=== PATIENT | female | born 1985 | race Caucasian/White ===

== ENCOUNTER 2017-03-31 14:15 | Emergency (ER) | payer BC ==
--- NOTE | 2017-03-31 14:30 | ER Document Report ---
ED Medical Screen (RME) - General Chief Complaint: Vag Bleeding, +preg <12wks Stated Complaint: VAGINAL BLEEDING Time Seen by Provider: 03/31/17 14:26 Notes: Patient presents with bleeding and abdominal cramping 1 day. She states she is currently 11 weeks . Not lightheaded or dizzy. She has had a previous miscarriage. Patient denies any chronic medical problems. TRAVEL OUTSIDE OF THE [place] IN LAST 30 DAYS: No - Related Data Allergies/Adverse Reactions: No Known Allergies Allergy (Unverified 03/31/17 14:23) Home Medications: Current Home Medications No Home Medications 03/31/17 [History] Vit #76/Iron,Carb/FA [Prenatabs Rx Tablet] 1 each PO DAILY 03/31/17 [ History] Past Medical History Renal/ Medical History: Denies: Hx Peritoneal Dialysis Physical Exam - Vital signs Vitals: Temp Pulse Resp BP Pulse Ox 97.8 F 73 16 117/64 100 03/31/17 14:27 03/31/17 14:27 03/31/17 14:27 03/31/17 14:27 03/31/17 14:27 Course - Vital Signs Vital signs: Temp Pulse Resp BP Pulse Ox 97.8 F 73 16 117/64 100 03/31/17 14:27 03/31/17 14:27 03/31/17 14:27 03/31/17 14:27 03/31/17 14:27
[2017-03-31 15:06] LABS: ABSOLUTE EOSINOPHILS # (AUTO) 0.1 10^3/uL (0.0-0.6); ABSOLUTE LYMPHOCYTES (AUTO) 1.9 10^3/uL (0.5-4.7); ABSOLUTE MONOCYTES (AUTO) 0.4 10^3/uL (0.1-1.4); ABSOLUTE NEUT (AUTO) 5.3 10^3/uL (1.7-8.2); BASOPHILS % (AUTO) 0.5 % (0-2); EOSINOPHILS % (AUTO) 1.7 % (0-6); HEMATOCRIT 40.6 % (36.0-47.0); HEMOGLOBIN 13.3 g/dL (12.0-15.5); HGB HCT DIFFERENCE -0.7; LYMPHOCYTES % (AUTO) 24.1 % (13-45); MEAN CORPUSCULAR HGB CONC 32.8 g/dL (32.0-36.0); MEAN CORPUSCULAR VOLUME 88 fl (80-97); MONOCYTES % (AUTO) 4.9 % (3-13); RED CELL DISTRIBUTION WIDTH 13.2 % (11.5-14.0); SEGMENTED NEUTROPHILS % (AUTO) 68.8 % (42-78); WHITE BLOOD COUNT 7.8 10^3/uL (4.0-10.5)
[2017-03-31 15:27] LABS: ANION GAP 10 (5-19); BLOOD UREA NITROGEN 13 mg/dL (7-20); CALCIUM 9.3 mg/dL (8.4-10.2); CARBON DIOXIDE 26 mmol/L (22-30); CHLORIDE 107 mmol/L (98-107); CREATININE RESULT 0.59 mg/dL (0.52-1.25); GLUCOSE 84 mg/dL (75-110); POTASSIUM 4.1 mmol/L (3.6-5.0); SODIUM 142.5 mmol/L (137-145)
--- NOTE | 2017-03-31 17:03 | ER Document Report ---
ED GI/ - General Chief Complaint: Vag Bleeding, +preg <12wks Stated Complaint: VAGINAL BLEEDING Time Seen by Provider: 03/31/17 14:26 Notes: Patient is approximately 11 weeks and started having spotting on Tuesday. During this past week she has had continued spotting and began passing some clots on Tuesday and Tuesday. She is also having some cramping like with her menstrual cycle. Patient has not had any ultrasound imaging of this . G3, P1, A1. TRAVEL OUTSIDE OF THE [place] IN LAST 30 DAYS: No - Related Data Allergies/Adverse Reactions: No Known Allergies Allergy (Unverified 03/31/17 14:23) Home Medications: Current Home Medications Vit #76/Iron,Carb/FA [Prenatabs Rx Tablet] 1 each PO DAILY 03/31/17 [ History] Past Medical History - Social History Smoking Status: Never Smoker Chew tobacco use (# tins/day): No Frequency of alcohol use: None Drug Abuse: None Family History: Reviewed & Not Pertinent Patient has suicidal ideation: No Patient has homicidal ideation: No Past Surgical History: Reports: Hx Kidney (Renal Surgery) - lithotripsy - Immunizations Hx Diphtheria, Pertussis, Tetanus Vaccination: No Review of Systems - Review of Systems Notes: REVIEW OF SYSTEMS: CONSTITUTIONAL : Denies fever. EENT: Denies eye, ear, nose or mouth or throat pain or other symptoms. CARDIOVASCULAR: Denies chest pain. RESPIRATORY: Denies cough, chest congestion, or shortness of breath. GASTROINTESTINAL: Has lower abdominal cramping like a menstrual cycle. However , denies nausea, vomiting, or diarrhea. GENITOURINARY: Denies difficulty or painful urinating, urinary frequency, blood in urine. See HPI MUSCULOSKELETAL: Denies back or neck pain. Denies joint pain or swelling. SKIN: Denies rash or skin lesions. ALL OTHER SYSTEMS REVIEWED AND NEGATIVE. Physical Exam - Vital signs Vitals: Temp Pulse Resp BP Pulse Ox 97.8 F 73 16 117/64 100 03/31/17 14:27 03/31/17 14:27 03/31/17 14:27 03/31/17 14:27 03/31/17 14:27 Interpretation: Normal - Notes Notes: PHYSICAL EXAMINATION: GENERAL: Well-appearing, in no acute distress. Vital signs are all normal. HEAD: Atraumatic, normocephalic. LUNGS: Breath sounds clear and equal bilaterally. HEART: Regular rate and rhythm without murmurs. ABDOMEN: Soft, nontender. No guarding or rebound. BACK: No tenderness throughout entire back. EXTREMITIES: Normal range of motion without pain. NEUROLOGICAL: Normal speech, normal gait. Normal sensory, motor, and reflex exams. Awake, alert, and oriented x3. Cranial nerves normal. SKIN: Warm, dry, no rashes. - Genitourinary External exam: Normal Speculum exam: Cervix open - At least 1 cm, Products of conception - Most likely tissue found in vagina., Other Vaginal bleeding: Mild Bimanuel exam: Other. No: Cervical motion tender, Adnexal mass, Adnexal tenderness, Uterus enlarged Course - Re-evaluation Re-evalutation: 03/31/17 20:53 After the pelvic exam, and the removal of the tissue from the vagina and from the cervical loss, patient says she was having no cramping or pain at all. Explain what apparently has happened, i.e. patient has had a miscarriage. No evidence of an ectopic . Copies of all labs and imaging studies were provided to the patient. Patient says she has called her [employer] and has an appointment to be seen by them Tuesday and . - Vital Signs Vital signs: Temp Pulse Resp BP Pulse Ox 97.8 F 65 18 141/92 H 97 03/31/17 14:27 03/31/17 18:03 03/31/17 18:03 03/31/17 18:03 03/31/17 18:03 - Laboratory Result Diagrams: 03/31/17 14:30 03/31/17 14:30 Laboratory results interpreted by me: 03/31/17 14:30 Beta HCG, Quant 39939.00 H Discharge - Discharge Clinical Impression: Miscarriage Condition: Stable Disposition: HOME, SELF-CARE Additional Instructions: Miscarriage You have had a miscarriage (medically called a "spontaneous "). The miscarriage occurred because the fetus did not develop normally. There is nothing you did to cause it, and nothing you could have done to prevent it. About one in four ends in miscarriage. You should rest in bed for two or three days. As there is some risk of infection of the uterus, you should not have intercourse for one week (or until okayed by your physician). You might not have a period for six to eight weeks. You should not become again for at least three months -- the uterus requires time to get back to normal. Call the doctor or return for re-examination if there is heavy or persistent vaginal bleeding, fever, foul discharge, continued cramping pains, or abdominal pain. USE OF ACETAMINOPHEN (Tylenol): Acetaminophen may be taken for pain relief or fever control. It's much safer than aspirin, offering a wider range of "safe" dosages. It is safe during . Some brand names are Tylenol, Panadol, Datril, Anacin 3, Tempra, and Liquiprin. Acetaminophen can be repeated every four hours. The following are maximum recommended dosages: WEIGHT Dose Drops Elixir Chewable( 80mg) (LBS.) drprs=droppers tsp=teaspoon >89 pounds or adults 650 mg to 900 mg Acetaminophen can be repeated every four hours. Maximum dose not to exceed 4000 mg a day. These maximum recommended dosages are slightly higher than the dosages written on the product container, but these dosages are very safe and below the toxic dosage for acetaminophen. Ibuprofen Ibuprofen is an excellent, safe drug for pain control. In addition, it has potent antiinflammatory effects which are beneficial, especially in the treatment of injuries, arthritis, or tendonitis. It's best to take ibuprofen with food. Persons with ulcer disease or allergy to aspirin should notify their physician of this before taking ibuprofen. Take the medication exactly as prescribed. Don't take additional doses unless instructed to do so by your doctor. If you develop wheezing, shortness of breath, hives, faintness, stomach pain, vomiting, or dark black stools, return for re-evaluation at once. Doxycycline Doxycycline (Vibramycin, Doryx) is an antibiotic of the tetracycline family. This type of drug is useful for infections of the respiratory tract and genital tract, and is sometimes used for intestinal infections. Unlike most tetracyclines, doxycycline can be taken with food. It is longer acting, and (usually) less prone to side effects than regular tetracycline. Tetracycline antibiotics can stain immature teeth and SHOULD NOT BE TAKEN BY CHILDREN, NURSING MOTHERS, OR WOMEN. Tetracyclines can make you more prone to sunburn. Abdominal cramping, nausea, and diarrhea are occasional side effects. Women may experience vaginal yeast infections. Call the doctor at once if you develop hives, itching, shortness of breath , or lightheadedness. Return for reevaluation if you run a high fever, have severe abdominal pains, or extremely heavy bleeding with clots that will not stop Keep your appointment that you have scheduled with your doctor in [place] Tuesday. Pelvic rest for 2 weeks. Avoid swimming in any water, such as pool water, river or ocean water, etc. FOLLOW-UP CARE: If you have been referred to a physician for follow-up care, call the physician s office for an appointment as you were instructed or within the next two days. If you experience worsening or a significant change in your symptoms, notify the physician immediately or return to the Emergency Department at any time for re-evaluation. Prescriptions: Doxycycline Hyclate 100 mg PO BID #14 capsule
--- NOTE | 2017-03-31 17:09 | RADIOLOGY REPORT (SQ) ---
EXAM DESCRIPTION: U/S OB TRANSVAG W/DOPPLER COMPLETED DATE/TIME: 03/31/2017 4:59 pm REASON FOR STUDY: bleeding/pain COMPARISON: None. TECHNIQUE: Transvaginal static and realtime grayscale images acquired of the pelvis. Additional lay cted spectral and color Doppler images recorded. All images stored on PACs. [id number] LIMITATIONS: None. FINDINGS: UTERUS: No masses. No anomalies. GESTATIONAL SAC: No IUP is identified. There is a questionable gestational sac within the vaginal ca nal P YOLK SAC: Not identified POLE: Not identified RIGHT ADNEXA: Normal ovary with normal vascular flow. No adnexal free fluid. No adnexal masses. LEFT ADNEXA: Normal ovary with normal vascular flow. No adnexal free fluid. No adnexal masses. FREE FLUID: None. OTHER: No other significant finding. IMPRESSION: No IUP is identified. There is a questionable gestational sac within the vaginal canal. CONSIDER F/U BHCG AND/OR ULTRASOUND FOR further evaluation. Trimester of : First - 0 to 13 weeks. TECHNICAL DOCUMENTATION: JOB ID: [id number] [employer]- All Rights Reserved
[2017-03-31 18:04] VITALS: BP 141/92
== END 2017-03-31 18:01 | disposition home or self-care (01) ==
LOC: EDSEX → ER 14:15
DX: O03.9 Complete or unspecified spontaneous abortion without complication (principal)
CPT/HCPCS: 36415; 76817; 80048; 84702; 85025; 86900; 86901; 88305; 93976; 99284